=== PATIENT | male | born 1975 | race Caucasian/White ===

== ENCOUNTER 2022-01-21 15:17 | Emergency (ER) | payer MEDICAID ==
[~2022-01-21] VITALS: Ht 170.2 cm; Wt 75.0 kg
[2022-01-21] MEDS ORDERED: HYDROCODONE/ACETAMINOPHEN 5/325MG TABLET PO ONE (15:45)
[2022-01-21] MEDS ORDERED: IBUPROFEN 400MG TABLET PO ONE (15:45)
[2022-01-21] MEDS ORDERED: CYCL10TA21 MT (19:55)
[2022-01-21] MEDS ORDERED: IBUP-2028 MT (19:55)
[2022-01-21 20:31] VITALS: BP 135/71
== END 2022-01-21 20:39 | disposition home or self-care (01) ==
LOC: ER 15:17
DX: M54.2 Cervicalgia (principal); M54.9 Dorsalgia, unspecified; R51.9 Headache, unspecified; Z91.81 History of falling
CPT/HCPCS: 72128; 72131; 99284